=== PATIENT | male | born 1955 | race Caucasian/White ===

== ENCOUNTER 2017-01-13 10:49 | Inpatient (IN) | payer BC, MEDICARE ==
[~2017-01-13] VITALS: Ht 167.6 cm; Wt 84.0 kg
[2017-01-13] VITALS (14 sets, daily range): BP systolic 89–139; BP diastolic 56–94; PULSE 74–100; RESP 20–35; TEMP 98.6–99; O2SAT 91–99
[~2017-01-13 10:49] MED LIST: CARV3.125 PO; IBUP400T20 PO; LORT5TAB PO; PRIN5TAB PO
[2017-01-13] MEDS ORDERED: SODIUM CHLORIDE 0.9% FLUSH 5 ML FLUSH IVF PRN (11:00)
[2017-01-13 11:15] LABS: BLOOD GAS BASE EXCESS -4.7 mmol/L (-2-2); BLOOD GAS CARBOXYHEMOGLOBIN 2.2 % (0-4); BLOOD GAS HCO3 19 mmol/L (22-26); BLOOD GAS METHEMOGLOBIN 1.8 % (0-2); BLOOD GAS O2 HGB SATURATION 94 % (90-100); BLOOD GAS OXYGEN CONTENT 22.4 Vol % (12.0-20.0); BLOOD GAS PCO2 32 mmHg (38-42); BLOOD GAS PO2 115 mmHG (61-120); BLOOD GAS TOTAL HGB 16.8 G/DL (12.0-16.0); TEMP CORR TO 98.6
[2017-01-13 11:16] LABS: CRITICAL VALUE NO; DRAW SITE RT RADIAL; FIO2 100 %; NUMBER OF ARTERIAL PUNCTURES 1; OXYGEN DEVICE BiPAP; ULNAR PULSE PRESENT; VENT SETTINGS IP14/EP7
[2017-01-13 11:17] LABS: STAT YES
--- NOTE | 2017-01-13 11:27 | PD ---
HPI Chief Complaint: Respiratory Distress Time Seen by Provider: 10:56 Travel History International Travel<30 days: No Contact w/Intl Traveler<30days: No Traveled to known affect area: No History of Present Illness HPI 61-year-old male was brought in by EMS from the dentist office with sudden onset of shortness of breath, hypoxia while in the middle of the dental procedure. Patient received lidocaine in his upper gum for the dental procedure on both side and soon after started developing shortness of breath. There was no sedation given prior to this patient. He says this morning he woke up and ate his breakfast and then went to the dentist office. Up until he was injected with the local anesthetic he was feeling fine. He said he got some twinge of chest pain on the left side but he has been getting them since he got his defibrillator. As per the dentist record his blood pressure was 167/ 115. As per the paramedics when they arrived patient initially was saturating 98%. However when they try to move him and get him to their gurney patient got extremely short of breath and his oxygen saturation dropped to the 80s on the nonrebreather. They heard bilateral rales and put him on BiPAP. He also gave him IV Lasix and sublingual nitroglycerin spray. When patient arrived he was on the BiPAP but said he felt better. Patient denied of any active chest pain. Patient has history of atrial fibrillation and his heart rate was in 1 teens. [facility] Past Medical History Narrative Medical List of his past medical history as reviewed from the nursing note. Hx Anticoagulant Therapy: Yes (WARFARIN) Coronary Artery Disease: Yes Tetanus Vaccination: Unknown Influenza Vaccination: No ?: Not Past Surgical History Abdominal Surgery: Yes (HERNIA REPAIR LT 30 YRS AGO) AICD: Yes ([facility]) Social History Alcohol Use: Yes (3-4 BEERS DAILY) Tobacco Use: Yes (LESS THAN ONE PPD) Substance Use: No Allergies-Medications (Allergen,Severity, Reaction): Coded Allergies: No Known Allergies (Verified , 01/13/17) Comments No known drug allergies. Reported Meds & Prescriptions Reported Meds & Active Scripts Active Reported K-Tab (Potassium Chloride) 10 Meq Tab 10 Meq PO DAILY Alprazolam 0.5 Mg Tab 0.5 Mg PO BID PRN Amiodarone (Amiodarone HCl) 200 Mg Tab 200 Mg PO AC DINNER Wellbutrin Xl 24 HR (Bupropion HCl) 300 Mg Tab 300 Mg PO DAILY Atorvastatin (Atorvastatin Calcium) 80 Mg Tab 80 Mg PO HS Warfarin 5 Mg Tab 5 Mg PO HS Carvedilol 12.5 Mg Tab 12.5 Mg PO BID Lisinopril 5 Mg Tab 5 Mg PO DAILY Narrative Medication List of his home medications reviewed from the nursing note. Review of Systems Except as stated in HPI: all other systems reviewed are Neg Physical Exam Narrative GENERAL: Awake, alert, on the BiPAP, moderate distress SKIN: Warm and dry. HEAD: Atraumatic. Normocephalic. EYES: Pupils equal and round. No scleral icterus. No injection or drainage. ENT: No nasal bleeding or discharge. Mucous membranes pink and moist. NECK: Trachea midline. No JVD. CARDIOVASCULAR: Irregularly irregular rate and rhythm, tachycardia. No murmur appreciated. RESPIRATORY: Decreased breath sounds. Bilateral rales up to mid chest. GASTROINTESTINAL: Abdomen soft, non-tender, nondistended. Hepatic and splenic margins not palpable. MUSCULOSKELETAL: No obvious deformities. No clubbing. No cyanosis. No edema. NEUROLOGICAL: Awake and alert. No obvious cranial nerve deficits. Motor grossly within normal limits. Normal speech. PSYCHIATRIC: Appropriate mood and affect; insight and judgment normal. Data Data Last Documented VS Vital Signs Date Time Temp Pulse Resp B/P Pulse Ox O2 Delivery O2 Flow Rate FiO2 01/13/17 12:20 86 30 109/79 99 BiPAP 01/13/17 11:12 98.6 01/13/17 11:04 100 Orders Complete Blood Count With Diff (01/13/17 10:57) Basic Metabolic Panel (Bmp) (01/13/17 10:57) B-Type Natriuretic Peptide (01/13/17 10:57) Prothrombin Time / Inr (Pt) (01/13/17 10:57) Ckmb (Isoenzyme) Profile (01/13/17 10:57) Troponin I (01/13/17 10:57) Arterial Blood Gas (Abg) (01/13/17 10:57) Urinalysis - C+S If Indicated (01/13/17 10:57) Iv Access Insert/Monitor (01/13/17 10:57) Electrocardiogram (01/13/17 10:57) Ecg Monitoring (01/13/17 10:57) Oximetry (01/13/17 10:57) Oxygen Administration (01/13/17 10:57) Chest, Single Ap (01/13/17 10:57) Sodium Chloride 0.9% Flush (Ns Flush) (01/13/17 11:00) Resp Bipap / Cpap Non Invas Vt (01/13/17 10:57) Blood Culture (01/13/17 11:44) Lactic Acid (01/13/17 11:44) Piperacil-Tazo 4.5 Gm Premix (Zosyn 4.5 (01/13/17 11:45) Azithromycin Inj (Zithromax Inj) (01/13/17 11:45) CKMB (01/13/17 11:20) CKMB% (01/13/17 11:20) Admit Order (Ed Use Only) (01/13/17 12:24) Labs Laboratory Tests Test 01/13/17 01/13/17 01/13/17 01/13/17 11:05 11:20 11:40 12:00 Blood Gas Puncture Site RT RADIAL Blood Gas Patient Temperature 98.6 Blood Gas HCO3 19 mmol/L Blood Gas Base Excess -4.7 mmol/L Blood Gas Oxygen Saturation 94 % Arterial Blood pH 7.40 Arterial Blood Partial 32 mmHg Pressure CO2 Arterial Blood Partial 115 mmHG Pressure O2 Arterial Blood Oxygen Content 22.4 Vol % Arterial Blood 2.2 % Carboxyhemoglobin Arterial Blood Methemoglobin 1.8 % Blood Gas Hemoglobin 16.8 G/DL Oxygen Delivery Device BiPAP Blood Gas Ventilator Setting IP14/EP7 Blood Gas Inspired Oxygen 100 % White Blood Count 16.3 TH/MM3 Red Blood Count 5.56 MIL/MM3 Hemoglobin 16.1 GM/DL Hematocrit 48.1 % Mean Corpuscular Volume 86.4 FL Mean Corpuscular Hemoglobin 29.0 PG Mean Corpuscular Hemoglobin 33.5 % Concent Red Cell Distribution Width 15.8 % Platelet Count 345 TH/MM3 Mean Platelet Volume 8.3 FL Neutrophils (%) (Auto) 88.4 % Lymphocytes (%) (Auto) 6.5 % Monocytes (%) (Auto) 3.4 % Eosinophils (%) (Auto) 1.2 % Basophils (%) (Auto) 0.5 % Neutrophils # (Auto) 14.4 TH/MM3 Lymphocytes # (Auto) 1.1 TH/MM3 Monocytes # (Auto) 0.6 TH/MM3 Eosinophils # (Auto) 0.2 TH/MM3 Basophils # (Auto) 0.1 TH/MM3 CBC Comment DIFF FINAL Differential Comment Prothrombin Time 42.7 SEC Prothromb Time International 3.7 RATIO Ratio Sodium Level 139 MEQ/L Potassium Level 4.2 MEQ/L Chloride Level 108 MEQ/L Carbon Dioxide Level 19.7 MEQ/L Anion Gap 11 MEQ/L Blood Urea Nitrogen 10 MG/DL Creatinine 1.05 MG/DL Estimat Glomerular Filtration 72 ML/MIN Rate Random Glucose 159 MG/DL Calcium Level 9.5 MG/DL Total Creatine Kinase 112 U/L Creatine Kinase MB 0.8 NG/ML Troponin I LESS THAN 0.02 NG/ML B-Type Natriuretic Peptide 1469 PG/ML Urine Color LIGHT-YELLOW Urine Turbidity CLEAR Urine pH 5.0 Urine Specific [place] 1.003 Urine Protein NEG mg/dL Urine Glucose (UA) NEG mg/dL Urine Ketones NEG mg/dL Urine Occult Blood NEG Urine Nitrite NEG Urine Bilirubin NEG Urine Urobilinogen LESS THAN 2.0 MG/DL Urine Leukocyte Esterase NEG Urine RBC LESS THAN 1 /hpf Urine WBC 1 /hpf Urine Hyaline Casts 5 /lpf Urine Mucus FEW /lpf Microscopic Urinalysis Comment CULT NOT INDICATED Lactic Acid Level 1.7 mmol/L MDM Medical Decision Making Medical Screen Exam Complete: Yes Emergency Medical Condition: Yes Medical Record Reviewed: Yes Interpretation(s) Twelve-lead EKG was reviewed by me. Paced rhythm. Heart rate of 95 bpm. Differential Diagnosis Pulmonary edema, congestive heart failure, ACS Narrative Course 11:25 AM in my opinion patient had flash pulmonary edema given the description. He was switched to nonrebreather after he was moved from the [facility]. His oxygen saturation very soon dropped to 88% on the nonrebreather. He was quickly switched back to the BiPAP as per my orders. Currently he is on pressures of 14/7 at 100%. Patient says he is a smoker but he's never been diagnosed with COPD. I looked at the blood gas on the BiPAP and it looks satisfactory. I will keep the settings on for now. Awaiting for the blood test results and the chest x-ray. Patient will require admission. 12:13 PM chest x-ray suggestive of flash pulmonary edema with increased interstitial prominence. White count was 16,000. Given the respiratory distress I've given her a dose of Zosyn and Zithromax to cover for possible pneumonia. Currently patient continues to be on BiPAP and saturating well. Awaiting for the production sound mixer to call back for admission. 12:31 PM I discussed patient's condition with him and his family members elaborately. I impressed upon him the reason for him to be admitted. Patient requested his irrigation system installer and I have put a call out for irrigation system installer who is Dr. Agarwal. But he is out of town. His sales assistants and salespersons coverage will be calling back. Critical Care Narrative Aggregate critical care time was 45 minutes. Time to perform other separately billable procedures was not included in the critical care time. My time did not include minutes spent treating any other patients simultaneously or on activities that did not directly contribute to the patient's treatment. The services I provided to this patient were to treat and/or prevent clinically significant deterioration that could result in: Respiratory distress, flushed pulmonary edema, hypoxia, BiPAP management I provided critical care services requiring my management, as noted below: Chart data review, documentation time, medication orders and management, vital sign assessments/reviewing monitor data, ordering and reviewing lab tests, ordering and interpreting/reviewing x-rays and diagnostic studies, care of the patient and discussion of the patient with the admitting physicians. Procedures EKG Prior to Arrival: Yes Sepsis Criteria SIRS Criteria (2 or more): Heart rate over 90, RR > 20 or PaCO2 < 32, WBC > 81692, < 4000 or > 10% bands Sepsis Criteria (SIRS+source): Infect source susp/known Physician Communication Physician Communication Dr. Hernandez Diagnosis Primary Impression: Flash pulmonary edema Additional Impressions: Acute respiratory distress Leukocytosis Qualified Code: D72.829 - Leukocytosis, unspecified type SIRS (systemic inflammatory response syndrome) Admitting Information Admitting Physician Requests: Admit Everett Marnielli MD Jan 13, 2017 11:27
[2017-01-13] MEDS ORDERED: CARV12.52 PO (11:31)
[2017-01-13] MEDS ORDERED: WARF-23 PO (11:31)
[2017-01-13] MEDS ORDERED: LISI-519 PO (11:31)
[2017-01-13] MEDS ORDERED: ATOR1TAB18 PO (11:33)
[2017-01-13] MEDS ORDERED: AMIO200T PO (11:37)
[2017-01-13] MEDS ORDERED: WELLTAB39 PO (11:37)
[2017-01-13] MEDS ORDERED: ALPR0.5T3 PO (11:37)
[2017-01-13] MEDS ORDERED: K-TA10TA PO (11:38)
--- NOTE | 2017-01-13 11:39 | EKG ---
Date Performed: 01/13/2017 Time Performed: 10:59:37 PTAGE: 61 years EKG: ELECTRONIC VENTRICULAR PACEMAKER ABNORMAL RHYTHM ECG NO PREVIOUS TRACING DOCTOR: Erick Rivera Interpretating Date/Time 01/13/2017 11:36:57
[2017-01-13 11:40] LABS: AUTOMATED NEUTROPHIL # 14.4 TH/MM3 (1.8-7.7); BASOPHIL # 0.1 TH/MM3 (0-0.2); BASOPHIL % 0.5 % (0.0-2.0); EOSINOPHIL # 0.2 TH/MM3 (0-0.4); EOSINOPHIL % 1.2 % (0.0-4.0); HEMATOCRIT 48.1 % (39.0-51.0); HEMO FLAGS DIFF FINAL; LYMPH % 6.5 % (9.0-44.0); LYMPHOCYTE # 1.1 TH/MM3 (1.0-4.8); MEAN CELL VOLUME 86.4 FL (80.0-100.0); MEAN CORPUSCULAR HGB CONC 33.5 % (32.0-36.0); MONO % 3.4 % (0.0-8.0); NEUT % 88.4 % (16.0-70.0); PLATELET COUNT 345 TH/MM3 (150-450); RED BLOOD COUNT 5.56 MIL/MM3 (4.50-5.90); RED CELL DISTRIBUTION WIDTH 15.8 % (11.6-17.2); WHITE BLOOD COUNT 16.3 TH/MM3 (4.0-11.0)
[2017-01-13 11:45] LABS: INTERNATIONAL NORMALIZED RATIO 3.7 RATIO; PROTHROMBIN TIME - PATIENT 42.7 SEC (9.8-11.6)
[2017-01-13] MEDS ORDERED: PIPERACIL-TAZO 4.5 GM PREMIX 100 ML IV ONE (11:45)
[2017-01-13] MEDS ORDERED: AZITHROMYCIN INJ 500 MG in SODIUM CHLOR 0.9% 250 ML INJ 250 ML IV ONE (11:45)
--- NOTE | 2017-01-13 11:46 | RADRPT ---
EXAM DATE/TIME: 01/13/2017 11:30 [place] COMPARISON: No previous studies available for comparison. INDICATIONS : Short of breath and difficulty breathing for 2 days. MEDICAL HISTORY : Congestive heart failure. Cardiovascular disease. SURGICAL HISTORY : Pacemaker. ENCOUNTER: Initial ACUITY: 2 days PAIN SCORE: 0/10 LOCATION: Bilateral chest FINDINGS: The heart is enlarged there is diffuse interstitial prominence most consistent with congestive failur e. There is a transvenous pacer in good position. The visualized bony structures are grossly intact. CONCLUSION: 1. Cardiomegaly and diffuse interstitial prominence most consistent with congestive failure. Wing Art MD on January 13, 2017 at 11:43 Board Certified Radiologist. This report was verified electronically.
[2017-01-13 11:58] LABS: ANION GAP 11 MEQ/L (5-15); BICARBONATE 19.7 MEQ/L (21.0-32.0); BLOOD UREA NITROGEN 10 MG/DL (7-18); CHLORIDE 108 MEQ/L (98-107); GLOMERULAR FILTRATION RATE 72 ML/MIN (>89); POTASSIUM 4.2 MEQ/L (3.5-5.1); SODIUM (NA) 139 MEQ/L (136-145)
[2017-01-13 11:59] LABS: BLOOD, URINE NEG (NEG); COMMENT (UR) CULT NOT INDICATED; CULTURE IF INDICATED CULT NOT INDICATED; GLUCOSE,URINE NEG (NEG); HYALINE CAST, URINE 5 /lpf (RARE); KETONE, URINE NEG (NEG); MUCUS URINE FEW /lpf (OCC); NITRITE,URINE NEG (NEG); URINE COLOR LIGHT-YELLOW (YELLW/STRAW)
[2017-01-13 12:01] LABS: CREATINE KINASE 112 U/L (39-308)
[2017-01-13 12:13] LABS: CKMB 0.8 NG/ML (0.5-3.6)
[2017-01-13] MEDS ORDERED: RESP: ALBUTEROL 2.5 MG/IPRATROPIUM 0.5 MG NEB (PRN) INH (13:30)
[2017-01-13] MEDS ORDERED: SODIUM CHLORIDE 0.9% FLUSH 5 ML FLUSH IV FLUSH PRN (13:30)
[2017-01-13] MEDS ORDERED: MISCELLANEOUS NURSING INFORMATION XX SCH (13:30)
[2017-01-13] MEDS ORDERED: GLUCAGON 1 MG/ML VIAL OTHER PRN (13:30)
[2017-01-13] MEDS ORDERED: POTASSIUM CHLOR 40 MEQ PREMIX 100 ML IV PRN ×2 (13:30)
[2017-01-13] MEDS ORDERED: POTASSIUM PHOSPHATE MONOBASIC 500 MG TAB PO/TUBE PRN (13:30)
[2017-01-13] MEDS ORDERED: POTASSIUM PHOSPHATE MONOBASIC 500 MG TAB PO PRN (13:30)
[2017-01-13] MEDS ORDERED: ACETAMINOPHEN 325 MG TAB PO PRN (13:30)
[2017-01-13] MEDS ORDERED: DEXTROSE 50% IN WATER 50 ML VIAL(D50) IV PUSH PRN (13:30)
[2017-01-13] MEDS ORDERED: SODIUM PHOSPHATE INJ 30 MMOL in SODIUM CHLOR 0.9% 250 ML INJ 240 ML IV PRN (13:30)
[2017-01-13] MEDS ORDERED: MAGNESIUM SULFATE INJ 4 GM in SODIUM CHLORIDE 0.9% INJ 92 ML IV PRN (13:30)
[2017-01-13] MEDS ORDERED: POTASSIUM CHLOR 20 MEQ PREMIX 100 ML IV PRN ×2 (13:30)
[2017-01-13] MEDS ORDERED: POTASSIUM CL 40 MEQ/30 ML LIQ UDC PO/TUBE PRN ×2 (13:30)
[2017-01-13] MEDS ORDERED: ONDANSETRON HCL 4 MG/2 ML VIAL IV PRN (13:30)
[2017-01-13] MEDS ORDERED: CHLORHEXIDINE GLUCONATE 2 % 1 PACK (2 CLOTHS) TOP PRN (13:30)
[2017-01-13] MEDS ORDERED: MAGNESIUM OXIDE 400 MG TAB PO PRN (13:30)
[2017-01-13] MEDS ORDERED: MAGNESIUM SULFATE INJ 2 GM in SODIUM CHLORIDE 0.9% INJ 96 ML IV PRN (13:30)
[2017-01-13] MEDS ORDERED: POTASSIUM PHOSPHATE INJ 30 MMOL in SODIUM CHLOR 0.9% 250 ML INJ 250 ML IV PRN (13:30)
[2017-01-13] MEDS: RESP: ALBUTEROL 2.5 MG/IPRATROPIUM 0.5 MG NEB (SCH) INH ×2 (15:40→19:24)
[2017-01-13] MEDS: INSULIN NovoLIN REGULAR SUPPLEMENTAL SCALE SQ SCH ×2 (16:00→21:00)
--- NOTE | 2017-01-13 20:08 | HHI.HP ---
HPI Service Critical Care Medicine Primary Care Physician Michel Bae M.D. Admission Diagnosis flash pulmonary edema, respiratory distress, hypoxia Diagnosis: Travel History International Travel<30 Days: No Contact w/Intl Traveler <30 Da: No Traveled to Known Affected Are: No History of Present Illness HPI 61-year-old male was brought in by EMS from the dentist office with sudden onset of shortness of breath, hypoxia while in the middle of the dental procedure. Patient received lidocaine with epinephrine for the dental procedure on both side and soon after started developing shortness of breath. As per the dentist record his blood pressure was 167/115. As per the paramedics when they arrived patient initially was saturating 98%. EMS reported that during transfer to the [facility], the patient becames dyspneic and oxygen saturation 80s on nonrebreather. Upon auscultation, bilateral rales were noted and he was placed on BiPAP. He received 40 mg IV Lasix and sublingual nitroglycerin spray. Critical Care medicine is consulted for evaluation and treatment. His safety instructor was consulted , Dr. Agarwal and notified of his admission. History PFSH Past Medical History Narrative Medical List of his past medical history as reviewed from the nursing note. Hx Anticoagulant Therapy: Yes (WARFARIN) Coronary Artery Disease: Yes Tetanus Vaccination: Unknown Influenza Vaccination: No ?: Not Past Surgical History Abdominal Surgery: Yes (HERNIA REPAIR LT 30 YRS AGO) AICD: Yes ([facility]) Social History Alcohol Use: Yes (3-4 BEERS DAILY) Tobacco Use: Yes (LESS THAN ONE PPD) Substance Use: No Allergies-Medications Allergies-Medications (Allergen,Severity, Reaction): Coded Allergies: No Known Allergies (Verified , 10/21/09) Comments No known drug allergies. Reported Meds & Prescriptions Reported Meds & Active Scripts Active Reported K-Tab (Potassium Chloride) 10 Meq Tab 10 Meq PO DAILY Alprazolam 0.5 Mg Tab 0.5 Mg PO BID PRN Amiodarone (Amiodarone HCl) 200 Mg Tab 200 Mg PO AC DINNER Wellbutrin Xl 24 HR (Bupropion HCl) 300 Mg Tab 300 Mg PO DAILY Atorvastatin (Atorvastatin Calcium) 80 Mg Tab 80 Mg PO HS Warfarin 5 Mg Tab 5 Mg PO HS Carvedilol 12.5 Mg Tab 12.5 Mg PO BID Lisinopril 5 Mg Tab 5 Mg PO DAILY Narrative Medication List of his home medications reviewed from the nursing note. ROS Review of Systems Except as stated in HPI: all other systems reviewed are Neg Past Family Social History Allergies: Coded Allergies: No Known Allergies (Verified , 01/13/17) Physical Exam Vital Signs Vital Signs Date Time Temp Pulse Resp B/P Pulse Ox O2 Delivery O2 Flow Rate FiO2 01/13/17 19:24 93 Nasal Cannula 2.00 01/13/17 18:33 87 25 127/94 94 Nasal Cannula 2 01/13/17 16:30 76 25 97/61 91 Nasal Cannula 2 01/13/17 15:40 95 Nasal Cannula 2.00 01/13/17 15:30 77 25 104/64 96 Venturi Mask 01/13/17 14:30 76 25 100/68 97 BiPAP 01/13/17 14:24 98 60 01/13/17 13:32 74 26 89/56 98 BiPAP 01/13/17 12:20 86 30 109/79 99 BiPAP 01/13/17 11:12 100 35 96 BiPAP 01/13/17 11:12 96 BiPAP 01/13/17 11:12 98.6 92 35 139/90 96 BiPAP 01/13/17 11:12 96 BiPAP 01/13/17 11:05 98.6 100 34 139/90 96 01/13/17 11:04 95 100 Physical Exam GENERAL: Well-developed gentleman sitting up in bed in moderate distress on BiPAP SKIN: Warm and dry. HEAD: Atraumatic. Normocephalic. EYES: Pupils equal and round. No scleral icterus. No injection or drainage. ENT: No nasal bleeding or discharge. Mucous membranes pink and moist. NECK: Trachea midline. No JVD. CARDIOVASCULAR: Normal rate, regular rhythm. RESPIRATORY: No accessory muscle use. Clear to auscultation. Breath sounds equal bilaterally. GASTROINTESTINAL: Abdomen soft, non-tender, nondistended. No guarding. MUSCULOSKELETAL: Extremities without clubbing, cyanosis, or edema. No obvious deformities. NEUROLOGICAL: Awake and alert. RASS 0. No gross focal/sensory deficits. Follows commands in all 4 extremities. Laboratory Laboratory Tests Test 01/13/17 01/13/17 01/13/17 01/13/17 11:05 11:20 11:40 12:00 Blood Gas Puncture Site RT RADIAL Blood Gas Patient Temperature 98.6 Blood Gas HCO3 19 Blood Gas Base Excess -4.7 Blood Gas Oxygen Saturation 94 Arterial Blood pH 7.40 Arterial Blood Partial 32 Pressure CO2 Arterial Blood Partial 115 Pressure O2 Arterial Blood Oxygen Content 22.4 Arterial Blood 2.2 Carboxyhemoglobin Arterial Blood Methemoglobin 1.8 Blood Gas Hemoglobin 16.8 Oxygen Delivery Device BiPAP Blood Gas Ventilator Setting IP14/EP7 Blood Gas Inspired Oxygen 100 White Blood Count 16.3 Red Blood Count 5.56 Hemoglobin 16.1 Hematocrit 48.1 Mean Corpuscular Volume 86.4 Mean Corpuscular Hemoglobin 29.0 Mean Corpuscular Hemoglobin 33.5 Concent Red Cell Distribution Width 15.8 Platelet Count 345 Mean Platelet Volume 8.3 Neutrophils (%) (Auto) 88.4 Lymphocytes (%) (Auto) 6.5 Monocytes (%) (Auto) 3.4 Eosinophils (%) (Auto) 1.2 Basophils (%) (Auto) 0.5 Neutrophils # (Auto) 14.4 Lymphocytes # (Auto) 1.1 Monocytes # (Auto) 0.6 Eosinophils # (Auto) 0.2 Basophils # (Auto) 0.1 CBC Comment DIFF FINAL Differential Comment Prothrombin Time 42.7 Prothromb Time International 3.7 Ratio Sodium Level 139 Potassium Level 4.2 Chloride Level 108 Carbon Dioxide Level 19.7 Anion Gap 11 Blood Urea Nitrogen 10 Creatinine 1.05 Estimat Glomerular Filtration 72 Rate Random Glucose 159 Calcium Level 9.5 Total Creatine Kinase 112 Creatine Kinase MB 0.8 Troponin I LESS THAN 0.02 B-Type Natriuretic Peptide 1469 Urine Color LIGHT-YELLOW Urine Turbidity CLEAR Urine pH 5.0 Urine Specific [place] 1.003 Urine Protein NEG Urine Glucose (UA) NEG Urine Ketones NEG Urine Occult Blood NEG Urine Nitrite NEG Urine Bilirubin NEG Urine Urobilinogen LESS THAN 2.0 Urine Leukocyte Esterase NEG Urine RBC LESS THAN 1 Urine WBC 1 Urine Hyaline Casts 5 Urine Mucus FEW Microscopic Urinalysis Comment CULT NOT INDICATED Lactic Acid Level 1.7 Test 01/13/17 14:53 Phosphorus Level 4.0 Date/Time Procedure Status Source Growth 01/13/17 12:05 Aerobic Blood Culture Received Blood Peripheral Pending 01/13/17 12:05 Anaerobic Blood Culture Received Blood Peripheral Pending Result Diagram: 01/13/17 1120 01/13/17 1120 Imaging Last Impressions Chest X-Ray 01/13/17 1057 Signed Impressions: Service Date/Time: December 11:30 - CONCLUSION: 1. Cardiomegaly and diffuse interstitial prominence most consistent with congestive failure. Wing Art MD Septic Shock Reassessment Heart: Irregular Lungs: Crackles Skin: Warm, Moist Peripheral Pulses: Bounding Right Radial Bounding Left Radial Bounding Right Dorsalis Pedis Bounding Left Dorsalis Pedis Capillary Refill: Brisk Assessment and Plan Assessment and Plan Plan by systems: Neurologic: No acute issues Neurochecks per ICU protocol GCS 15, patient denies pain Respiratory: Tobacco abuse Flash pulmonary edema secondary epinephrine injections Patient received 40 mg IV Lasix, diuresing well, greater than 2 L off Continue to monitor Wean FiO2 down as tolerated, wean to nasal cannula Patient counseled on cessation of smoking Cardiovascular: Cardiomegaly History of A. fib Pacemaker Denies angina Consult cardiology, is the patient's personal safety instructor Telemetry Obtain 12-lead EKG Renal: Monitor urine output, status post 40 mg of Lasix -- Strict I/Os FEN/GI: Monitor BMP Nothing by mouth, advance diet when weaned to nasal cannula Heme/ID: Leukocytosis Monitor CBC Blood cultures and urine cultures obtained, follow-up results Endocrine: Glucose monitoring per ICU protocol -- SSI Prophylaxis: GI Prophylaxis Protonix DVT Prophylaxis -- SCDs Lines: Peripheral IV's. Central line if indicated Dispo: This patient remains critically ill with one or more organ systems which are or may become a threat to life. I have spent in excess of 45 minutes discontinuously in the care and management of this patient. This time is exclusive of procedures, and includes, but is not limited to, evaluation of the patient, review of the medical record, discussions with family, consultants, nursing staff, or respiratory therapy, and documentation in the medical record. The patient's diuresing well, plans for the patient to be weaned to nasal cannula and transfer to hospitalist in a.m.. Code Status Full Discussed Condition With Spouse and ED RN at bedside. D/W Karis Randall MD Jan 13, 2017 20:08
[2017-01-13] MEDS: SODIUM CHLORIDE 0.9% FLUSH 5 ML FLUSH IV FLUSH SCH (21:00)
[2017-01-13] MEDS: DOCUSATE SODIUM 100 MG CAP PO SCH (21:00)
[2017-01-14] VITALS: BP 131/89; PULSE 91; RESP 20; TEMP 98.8; O2SAT 93
[2017-01-14 04:00] VITALS: BP 106/64; PULSE 78; RESP 16; TEMP 98.3; O2SAT 94
[2017-01-14] MEDS ORDERED: CHLORHEXIDINE GLUCONATE 2 % 1 PACK (2 CLOTHS) TOP SCH (04:00)
[2017-01-14] MEDS: RESP: ALBUTEROL 2.5 MG/IPRATROPIUM 0.5 MG NEB (SCH) INH ×3 (04:51→15:13)
[2017-01-14] MEDS: INSULIN NovoLIN REGULAR SUPPLEMENTAL SCALE SQ SCH ×2 (06:05→11:00)
[2017-01-14 08:00] VITALS: BP 120/94; PULSE 109; RESP 20; TEMP 97.8; O2SAT 94
[2017-01-14] MEDS: SODIUM CHLORIDE 0.9% FLUSH 5 ML FLUSH IV FLUSH SCH (08:56)
[2017-01-14] MEDS: DOCUSATE SODIUM 100 MG CAP PO SCH (08:57)
[2017-01-14] MEDS ORDERED: PANTOPRAZOLE SODIUM 40 MG VIAL IV SCH (09:00)
--- NOTE | 2017-01-14 09:28 | HHI.PR ---
Subjective Remarks Follow up pulmonary edema. The patient states that he feels much better today. Denies chest pain or dyspnea. He wants to go home. Objective Vitals Vital Signs Date Time Temp Pulse Resp B/P Pulse Ox O2 Delivery O2 Flow Rate FiO2 01/14/17 08:00 97.8 109 20 120/94 94 01/14/17 04:00 98.3 78 16 106/64 94 01/14/17 00:00 98.8 91 20 131/89 93 01/13/17 21:03 99.0 91 20 133/87 93 01/13/17 19:24 93 Nasal Cannula 2.00 01/13/17 18:33 87 25 127/94 94 Nasal Cannula 2 01/13/17 16:30 76 25 97/61 91 Nasal Cannula 2 01/13/17 15:40 95 Nasal Cannula 2.00 01/13/17 15:30 77 25 104/64 96 Venturi Mask 01/13/17 14:30 76 25 100/68 97 BiPAP 01/13/17 14:24 98 60 01/13/17 13:32 74 26 89/56 98 BiPAP 01/13/17 12:20 86 30 109/79 99 BiPAP 01/13/17 11:12 100 35 96 BiPAP 01/13/17 11:12 96 BiPAP 01/13/17 11:12 98.6 92 35 139/90 96 BiPAP 01/13/17 11:12 96 BiPAP 01/13/17 11:05 98.6 100 34 139/90 96 01/13/17 11:04 95 100 I/O 01/13/17 01/13/17 01/13/17 01/14/17 01/14/17 01/14/17 07:00 15:00 23:00 07:00 15:00 23:00 Intake Total 2 ml 242 ml Output Total 700 ml 1100 ml 300 ml Balance -700 ml -1098 ml -58 ml Intake Oral 240 ml IV Total 2 ml 2 ml Output Urine Total 700 ml 1100 ml 300 ml # Voids 1 2 # Bowel Movements 0 Result Diagram: 01/13/17 1120 01/13/17 1120 Imaging Last Impressions Chest X-Ray 01/13/17 1057 Signed Impressions: Service Date/Time: December 11:30 - CONCLUSION: 1. Cardiomegaly and diffuse interstitial prominence most consistent with congestive failure. Wing Art MD Objective Remarks General: No acute distress. Heart: Regular rate and rhythm. No murmur. Lungs: Mild basilar crackles. Breathing is nonlabored. Abdomen: Soft, nontender, nondistended. Extremities: No lower extremity edema. Psych: Alert and oriented. Urinary Catheter: No Vascular Central Line Catheter: No A/P Problem List: (1) Acute respiratory distress ICD Code: R06.00 Status: Acute (2) Flash pulmonary edema ICD Code: J81.0 Status: Acute (3) Leukocytosis ICD Code: D72.829 Status: Acute (4) SIRS (systemic inflammatory response syndrome) ICD Code: R65.10 Status: Acute Assessment and Plan 1. Acute respiratory distress secondary to flash pulmonary edema: Improving. Wean supplemental oxygen. Continue diuresis. Check 2-D echocardiogram. Cardiology consultation is pending. 2. Tobacco abuse: Patient has been counseled to quit smoking. 3. Cardiomegaly, history of A. fib: AICD in place. Cardiology consult requested. Monitor on telemetry. 4. Leukocytosis, SIRS: No apparent source of infection. Monitor labs. 5. GI prophylaxis: Protonix. 6. DVT prophylaxis: SCDs. 7. CODE STATUS: Full code. Discharge Planning Plan for discharge when cleared by cardiology. Problem Qualifiers (1) Leukocytosis: Qualified Code: D72.829 - Leukocytosis, unspecified type Ashok Tolentino MD Jan 14, 2017 09:28
[2017-01-14] MEDS ORDERED: ALPRAZolam 0.5 MG TAB PO PRN (09:30)
[2017-01-14] MEDS ORDERED: LISINOPRIL 5 MG TAB PO SCH (09:30)
[2017-01-14] MEDS ORDERED: buPROPion HCL 150 MG SUSTAINED RELEASE TAB PO SCH (10:00)
[2017-01-14 11:09] LABS: PROTHROMBIN TIME - PATIENT 22.4 SEC (9.8-11.6)
[2017-01-14 12:00] VITALS: BP 108/62; PULSE 80; RESP 20; TEMP 97.7; O2SAT 95
[2017-01-14 13:15] VITALS: O2SAT 97
[2017-01-14 15:13] VITALS: O2SAT 97
[2017-01-14] MEDS ORDERED: AMIODARONE 200 MG TAB PO SCH (16:00)
--- NOTE | 2017-01-14 17:00 | HHI.DCPOC ---
Discharge Care Plan Diagnosis: (1) Leukocytosis (2) Acute respiratory distress (3) Flash pulmonary edema (4) SIRS (systemic inflammatory response syndrome) Goals to Promote Your Health * To prevent worsening of your condition and complications * To maintain your health at the optimal level Directions to Meet Your Goals Take your medications as prescribed Follow your dietary instruction Follow activity as directed Keep your appointments as scheduled Take your immunizations and boosters as scheduled If your symptoms worsen call your PCP, if no PCP go to Urgent Care Center or Emergency Room Smoking is Dangerous to Your Health. Avoid second hand smoke Call the 24-hour hour crisis hotline for domestic abuse at Ashok Tolentino MD Jan 14, 2017 17:00
--- NOTE | 2017-01-14 17:31 | MB ---
cc: VIDAL VILLAFANA DINESH MD DATE OF CONSULTATION: 01/14/2017 REASON FOR CONSULTATION: Cardiology consultation. IMPRESSION 1. Dilated cardiomyopathy, etiology etiopathic / post viral, [place] [employer] functional class II to III. 2. Sinus tachycardia pulmonary edema occurring after the patient received multiple injections of lidocaine with epinephrine in preparation for dental work. 3. Mild coronary artery disease. 4. Chronic atrial fibrillation. 5. History of ventricular tachycardia. The patient has a dual chamber ICD. 6. Hypertension. 7. Ongoing tobacco use with probable chronic bronchitis. RECOMMENDATIONS 1. Okay to discharge the patient. 2. Continue same medications. 3. The patient will follow up with Dr. Agarwal his primary dealer account manager in 3 months. CLINICAL DATA Mr. Wilhelm of [facility] 11[facility]-old [facility] with shortness of breath and tachycardia. He was feeling fine. He went to the dentist in order to get laser dental procedure. He had multiple injections of local anesthetic with epinephrine in the dentist's office. He immediately became dyspneic tachypneic, he apparently had hypoxemia, paramedics were called. He was transferred to the emergency room subsequently admitted, his admitting chest x-ray demonstrated cardiomegaly and a AV sequential pacing devices leads in adequate position but with mild pulmonary edema and some fluid and a minor fissure. He has no history of myocardial infarction but does have a history of congestive heart failure. He has not had any recent defibrillator shocks. He has chronic atrial fibrillation although his EKG demonstrated sinus rhythm with pacing. He appears to be in atrial fib during clinical examination at this time. He has a history of hypertension. There is no definite history of dyslipidemia. He is on chronic warfarin therapy. ALLERGIES He has had no allergies to medications. MEDICATIONS His medicines at the time admission included 1. Potassium chloride 10 daily. Not on diuretics and he may require diuresis in the outpatient setting. 2. He is on atorvastatin 80 mg daily. 3. Warfarin 5 mg daily. 4. Carvedilol 12.5 t.i.d. 5. Lisinopril 5 mg daily. 6. Wellbutrin long-acting 300 mg daily. 7. Alprazolam 0.5 b.i.d. p.r.n. PAST SURGICAL HISTORY: His past surgical history includes cardiac catheterization 2004 which demonstrated an ejection fraction of 40% at that time. He had a ostial LAD lesion at 20% with mild luminal irregularities in the right coronary artery and circumflex systems. He has no history of seizure, stroke, no history of asthma. He does have history suggestive of chronic bronchitis, he is trying to quit smoking but noticed his cough increased when he did quit smoking. He has no history of GI bleeding peptic ulcer disease. No bleeding complications on long-term warfarin therapy. No history of liver, gallbladder, kidney or thyroid disease. There is no history of DVT or pulmonary thromboembolic disease. He has had no recent chest pain. No recent ICD shocks. He has had no lower extremity edema, weight gain. He has had no recent change in functional capacity until his presenting complaint. PHYSICAL EXAMINATION IN GENERAL: At this time demonstrates an alert, oriented male in no apparent distress. He is sitting up in chair, breathing room air. He is not dyspneic nor tachypneic and wants to go home. VITAL SIGNS: His blood pressure is 131/90, heart rate is approximately 90 right now he has been afebrile since admission. HEAD, EYES, EARS, NOSE, AND THROAT: Anicteric sclerae, jugular venous pressures are normal. Kussmaul sign negative. LUNGS: His lungs are clear. CARDIOVASCULAR SYSTEM: Cardiac exam regular rate and rhythm with frequent extrasystoles noted. He may be in atrial fibrillation at this point and time, monitor are not available. There is no third heart sound noted. There is a 1/6 systolic ejection murmur left midsternal border which is non-radiating. EXTREMITIES: Free of clubbing, cyanosis or edema. RADIOLOGIC: 12-lead EKG on admission demonstrated what appears to be a sinus rhythm with P-synch pacing through the patient tells me that he has been in atrial fibrillation forever. LABORATORY: White cell count 16,300 on admission, hematocrit is 48%, platelet count 345,000 indexes are normal. Lytes 139, 4.2, 108, 19.7 with a blood urea nitrogen of 10. Creatinine of 1. Lactic acid level was 1.7, troponin less than 0.2. His basic metabolic profile was elevated at 1469 at the highest. RADIOLOGIC: Chest x-ray with cardiomegaly. AV sequential ICD device, mild retraction of the atrial lead, pulmonary edema with fluid in the minor fissure and cardiomegaly. DISCUSSION 59-year-old male admitted in the hospital with tachycardia and shortness of breath, pulmonary edema after being administered a local anesthetic with epinephrine. I cannot find the ER record of his original blood pressure, he tells me it was high. RECOMMENDATIONS: Are as noted above. DO JOSE R Santiago/kiana /5:02 PM /5:15 PM
[2017-01-14] MEDS ORDERED: FUROSEMIDE 20 MG/2 ML VIAL IV PUSH SCH (18:00)
--- NOTE | 2017-01-14 20:01 | EC ---
Study Study Date:01/14/2017 STUDY CONCLUSIONS SUMMARY - Left ventricle: The cavity size was mildly dilated. Systolic function was severely reduced. The estimated ejection fraction was in the range of 20% to 25%. Diffuse hypokinesis. - Aortic valve: Valve area: 1.58cm^2 (Vmax). - Mitral valve: Mild regurgitation. - Left atrium: The atrium was moderately dilated. - Tricuspid valve: Mild regurgitation. - Pulmonary arteries: PA peak pressure: 51mm Hg (S). If LV function is below 40, please consider prescribing an ACEI or ARB or document rationale for non-use. PROCEDURE DATA STUDY STATUS: Elective. Procedure: Transthoracic echocardiography. Image quality was good. Scanning was performed from the parasternal, apical, and subcostal acoustic windows. Study completion: The patient tolerated the procedure well. Transthoracic echocardiography. M-mode, complete 2D, complete spectral Doppler, and color Doppler. Height: Height: 66in. Weight: Weight: 184.6lb. Body mass index: BMI: 29.9kg/m^2. Body surface area: BSA: 1.93m^2. Patient status: Inpatient. CARDIAC ANATOMY LEFT VENTRICLE: The cavity size was mildly dilated. Systolic function was severely reduced. The estimated ejection fraction was in the range of 20% to 25%. Diffuse hypokinesis. AORTIC VALVE: Mildly calcified leaflets. Doppler: There was no stenosis. No significant regurgitation. Valve area: 1.58cm^2 (Vmax). Indexed valve area: 0.82cm^2/m^2 (Vmax). MITRAL VALVE: The valve appears to be grossly normal. Doppler: There was no evidence for stenosis. Mild regurgitation. LEFT ATRIUM: The atrium was moderately dilated. RIGHT VENTRICLE: Pacer wire or catheter noted in right ventricle. PULMONIC VALVE: Poorly visualized. TRICUSPID VALVE: The valve appears to be grossly normal. Doppler: There was no evidence for stenosis. Mild regurgitation. PERICARDIUM: There was no pericardial effusion. Patient weight: 184.6lb _Ejection fraction:_ 65-75% _Fractional shortening:_ 32% up to 5Kg 5-11.5Kg 11.6-22.9Kg 23-45Kg 45-57Kg Aortic Root 7-13 <17 13-22 17-27 17-27 LA diam 6-13 <23 24-38 33-47 37-40 RVID 10-17 7-15 7-15 7-18 8-17 LVIDd 12-22 <32 24-38 33-47 37-40 LVPW 2-4 3-6 5-7 6-8 7-8 IVS 2-4 3-6 5-7 6-8 7-8 BASIC MEASUREMENTS ADULT NORMAL Left ventricle LV internal dimension, ED, chordal *63 mm 43-52 level, PLAX LV internal dimension, ES, chordal *57 mm 23-38 level, PLAX Fractional shortening, chordal level, *10 % >29 PLAX LV posterior wall thickness, ED 8.63 mm IVS/LVPW ratio, ED 0.96 <1.3 Volume, ED, MOD, 1-plane 125 ml Volume, ES, MOD, 1-plane 100 ml Ejection fraction, MOD, 1-plane 20 % Stroke volume, MOD, 1-plane 25 ml Volume index, ED, MOD, 1-plane 65 ml/m^2 Volume index, ES, MOD, 1-plane 52 ml/m^2 Stroke index, MOD, 1-plane 13 ml/m^2 Volume, ED, MOD, 2-plane 144 ml Volume, ES, MOD, 2-plane 114 ml Ejection fraction, MOD, 2-plane 21 % Stroke volume, MOD, 2-plane 30 ml Volume index, ED, MOD, 2-plane 75 ml/m^2 Volume index, ES, MOD, 2-plane 59 ml/m^2 Stroke index, MOD, 2-plane 15.5 ml/m^2 Ventricular septum Septal thickness, ED 8.3 mm Aortic valve Leaflet separation 16 mm 15-26 BASIC MEASUREMENTS ADULT NORMAL Aortic valve Leaflet separation 16 mm 15-26 Aorta Root diameter, ED 24 mm 20-37 Left atrium Anterior-posterior dimension, ES *47 mm 19-40 Anterior-posterior dimension index, ES *2.44 cm/m^2 <2.2 LA/aortic root ratio 1.96 DOPPLER MEASUREMENTS ADULT NORMAL Main pulmonary artery Pressure, S *51 mm Hg =30 Aortic valve Peak velocity, S 142 cm/s Valve area, Vmax 1.58 cm^2 Valve area index, Vmax 0.82 cm^2/m^2 Mitral valve Maximal regurgitant velocity 382 cm/s Tricuspid valve Regurgitant peak velocity 344 cm/s Peak RV-RA gradient, S 47 mm Hg Maximal regurgitant velocity 344 cm/s Systemic veins Estimated CVP 10 mm Hg Right ventricle RV pressure, S *57 mm Hg <30 Pulmonic valve Peak velocity, S 122 cm/s LEGEND: Mean values are shown as u=mean value. Asterisk (*) [place] values outside specified normal range. Prepared and signed by Iftikhar King [id number]
[2017-01-14] MEDS ORDERED: CARVEDILOL 12.5 MG TAB PO SCH (21:00)
[2017-01-14] MEDS ORDERED: ATORVASTATIN 80 MG TAB PO SCH (21:00)
[2017-01-15] MEDS ORDERED: POTASSIUM CHLORIDE 10 MEQ CONTROLLED RELEASE TAB PO SCH (09:00)
== END 2017-01-14 17:28 | disposition home or self-care (01) | DRG 206 ==
LOC: NEPC 10:49 → NEDA 12:26 → NEDH 17:46 → N04A 21:03
PROVIDERS: ADMIT Family Medicine; ATTEND Family Medicine
PROC: 5A09357 Assistance with Respiratory Ventilation, Less than 24 Consecutive Hours, Continuous Positive Airway Pressure (ICD-10-PCS; principal; 2017-01-13)
DX: J70.2 Acute drug-induced interstitial lung disorders (principal); I42.0 Dilated cardiomyopathy; F17.210 Nicotine dependence, cigarettes, uncomplicated; Y92.531 Health care provider office as the place of occurrence of the external cause; T44.5X5A Adverse effect of predominantly beta-adrenoreceptor agonists, initial encounter; I25.10 Atherosclerotic heart disease of native coronary artery without angina pectoris; Z79.01 Long term (current) use of anticoagulants; Z95.810 Presence of automatic (implantable) cardiac defibrillator; I10 Essential (primary) hypertension; J42 Unspecified chronic bronchitis
CPT/HCPCS: 36600; 71010; 80048; 81001; 82550; 82552; 82805; 82948; 83605; 83880; 84100; 84484; 85025; 85610; 87040; 93005; 93306; 94002; 94640; 94664; J0456; J1940; J2543; J7050